=== PATIENT | male | born 1980 | race African-American/Black ===

== ENCOUNTER 2016-10-13 15:56 | Emergency (ER) | payer SELFPAY ==
[~2016-10-13] VITALS: Ht 177.8 cm; Wt 111.1 kg
[2016-10-13] MEDS: IV NORMAL SALINE 1000ML BAG 1,000 ML IV SCH ×2 (17:38→17:46)
[2016-10-13 17:53] LABS: BASO # 0.1 x10^3/uL (0.0-0.2); BASO % 1 % (0-3); EOS % 1 % (0-3); HEMOGLOBIN 14.8 g/dL (13.0-17.5); LYMPH # 1.8 x10^3/uL (1.0-4.8); LYMPH % 15 % (24-48); MEAN CORPUSCULAR HEMOGLOBIN 32 pg (25-35); MEAN CORPUSCULAR HGB CONC 34 g/dL (31-37); MEAN CORPUSCULAR VOLUME 94 fL (79-100); MONO % 9 % (0-9); NEUT % 75 % (31-73); PLATELET COUNT 232 x10^3/uL (140-400); RED BLOOD COUNT 4.58 x10^6/uL (4.30-5.70); RED CELL DISTRIBUTION WIDTH 13.4 % (11.5-14.5); WHITE BLOOD COUNT 12.1 x10^3/uL (4.0-11.0)
[2016-10-13] MEDS ORDERED: HYDROCODONE/APAP 5/325MG TABLET. PO ONE (18:00)
[2016-10-13 18:05] LABS: CALCIUM 9.2 mg/dL (8.5-10.1); CREATININE 1.3 mg/dL (0.7-1.3); GFR 76.9; POTASSIUM 4.5 mmol/L (3.5-5.1)
[2016-10-13 18:10] LABS: BILIRUBIN,URINE NEGATIVE (NEG); GLUCOSE,URINE NEGATIVE (NEG); NITRITE,URINE NEGATIVE (NEG); PROTEIN,URINE NEGATIVE (NEG-TRACE)
[2016-10-13 18:22] LABS: BACTERIA,URINE 0 /HPF (0-FEW); WBC,URINE >40 /HPF (0-4)
[2016-10-13] MEDS ORDERED: CONTRAST GIVEN MC PRN (19:15)
[2016-10-13 19:30] VITALS: BP 125/74
[2016-10-13] MEDS ORDERED: IOHEXOL 300 MG/ML 75 ML VIAL IV ONE (19:30)
--- NOTE | 2016-10-13 20:09 | RAD ---
Examination: CT of the abdomen pelvis with IV contrast. HISTORY History of lower abdominal pain, leukocytosis. COMPARISON None available. TECHNIQUE Axial CT images of the abdomen pelvis were performed with IV contrast. Coronal and sagittal reformats were performed. Exposure: One or more of the following dose reduction technique were utilized for this examination: 1. Automated exposure control. 2.Adjustment of MA and /or KV according to patient size. 3. Use of iterative reconstruction technique. Findings: The visualized bibasilar lungs demonstrate minimal atelectasis. No evidence of free air identified in the abdomen. The visualized liver, spleen, adrenal grossly appears unremarkable. The visualized gallbladder is mildly distended. The small bowel is nondilated. The appendix is normal. Feces and gas noted in the colon. Urinary bladder is mildly distended. There is minimal fat stranding identified about the urinary bladder and the seminal vesicle region could be secondary to streak artifact artifact or due to inflammation from cystitis or inflammation the seminal vesicles. The bilateral kidneys enhance symmetrically. No evidence of lytic bony destructive lesion. IMPRESSION 1. There is minimal fat stranding identified about the urinary bladder and the seminal vesicle region could be secondary to streak artifact artifact or due to inflammation from cystitis or inflammation the seminal vesicles. Correlate clinically. Otherwise unremarkable exam. Electronically signed by: Marshal Schaffer (Oct 13, 2016 20:07:40)
[2016-10-13] MEDS ORDERED: CIPR500T94 PO (20:35)
--- NOTE | 2016-10-13 20:36 | PHYS DOC ---
Past Medical History Past Medical History: No Pertinent History Past Surgical History: Other Additional Past Surgical Histo: R hand surgery Alcohol Use: None Drug Use: None Adult General Chief Complaint Chief Complaint: ABDOMINAL PAIN HPI HPI Patient is a 35 year old male who presents with lower abdominal pain and penile discharge. Patient reports for the past 2 days he has had sharp pain in his left lower quadrant and suprapubic area. This pain is worse with walking. He also reports he has a sharp pain by his heart. No shortness of breath. He says that he had a small amount of orange-colored discharge from his penis earlier today. No penile or testicular pain, no sores or other lesions. No prior similar episodes. He has not taken anything for symptoms. Review of Systems Review of Systems Constitutional: Denies fever or chills Respiratory: Denies cough or shortness of breath Cardiovascular: Sharp L side chest pain GI: Lower abdominal pain. Denies nausea, vomiting, bloody stools or diarrhea : Penile discharge. Denies dysuria or hematuria Musculoskeletal: Denies back pain or joint pain Integument: Denies rash or skin lesions Neurologic: Denies headache, focal weakness or sensory changes Current Medications Current Medications Current Medications Medications (Trade) Dose Ordered Sig/Helga Start Time Stop Time Status Last Admin Dose Admin Acetaminophen/ Hydrocodone Bitart (Lortab 5/325) 2 tab 1X ONCE 10/13/16 18:00 10/13/16 18:01 DC 10/13/16 18:13 2 TAB Azithromycin (Zithromax) 1,000 mg 1X ONCE 10/13/16 21:00 10/13/16 21:01 DC 10/13/16 21:00 1,000 MG Ceftriaxone Sodium (Rocephin Im) 250 mg 1X ONCE 10/13/16 21:00 10/13/16 21:01 DC 10/13/16 21:16 250 MG Info (Do NOT chart on this entry -- for MONITORING) 1 each PRN DAILY PRN 10/13/16 19:15 10/13/16 21:46 DC Iohexol (Omnipaque 300 Mg/ml) 75 ml 1X ONCE 10/13/16 19:30 10/13/16 19:31 DC 10/13/16 19:50 75 ML Sodium Chloride (Iv Sodium Chloride 0.9% 1000ml Bag) 1,000 ml @ 1,000 mls/hr Q1H 10/13/16 18:00 10/13/16 18:59 DC 10/13/16 17:46 1,000 MLS/HR Allergies Allergies Allergies Coded Allergies Type Severity Reaction Last Updated Verified No Known Drug Allergies 10/13/16 No Physical Exam Physical Exam Constitutional: Well developed, well nourished, no acute distress, non-toxic appearance Neck: Normal range of motion, no stridor Cardiovascular: Heart rate normal, regular rhythm, no murmur Lungs & Thorax: Bilateral breath sounds clear to auscultation Abdomen: Bowel sounds normal, soft, non-distended, mild suprapubic TTP without guarding or rebound : External genitalia visually unremarkable, no skin lesions noted, no testicular or penile TTP Skin: Warm, dry, no erythema, no rash Extremities: No obvious deformity, no edema Neurologic: Alert and oriented X 3, no gross deficits noted Current Patient Data Vital Signs Vital Signs Date Time Temp Pulse Resp B/P Pulse Ox O2 Delivery O2 Flow Rate FiO2 10/13/16 19:30 84 8 125/74 93 Room Air 10/13/16 16:02 98.3 98.3 Lab Values Laboratory Tests Test 10/13/16 16:40 10/13/16 17:38 Urine Collection Type Unknown Urine Color Yellow Urine Clarity Cloudy Urine pH 6.0 Urine Specific [place] 1.025 Urine Protein Negativemg/dL (NEG-TRACE) Urine Glucose (UA) Negativemg/dL (NEG) Urine Ketones (Stick) Negativemg/dL (NEG) Urine Blood Moderate (NEG) Urine Nitrite Negative (NEG) Urine Bilirubin Negative (NEG) Urine Urobilinogen Dipstick 1.0mg/dL (0.2 mg/dL) Urine Leukocyte Esterase Large (NEG) Urine RBC 1-2/HPF (0-2) Urine WBC >40/HPF (0-4) Urine Squamous Epithelial Cells None/LPF Urine Bacteria 0/HPF (0-FEW) Urine Mucus Slight/LPF White Blood Count 12.1x10^3/uL (4.0-11.0) H Red Blood Count 4.58x10^6/uL (4.30-5.70) Hemoglobin 14.8g/dL (13.0-17.5) Hematocrit 43.0% (39.0-53.0) Mean Corpuscular Volume 94fL (79-100) Mean Corpuscular Hemoglobin 32pg (25-35) Mean Corpuscular Hemoglobin Concent 34g/dL (31-37) Red Cell Distribution Width 13.4% (11.5-14.5) Platelet Count 232x10^3/uL (140-400) Neutrophils (%) (Auto) 75% (31-73) H Lymphocytes (%) (Auto) 15% (24-48) L Monocytes (%) (Auto) 9% (0-9) Eosinophils (%) (Auto) 1% (0-3) Basophils (%) (Auto) 1% (0-3) Neutrophils # (Auto) 9.1x10^3uL (1.8-7.7) H Lymphocytes # (Auto) 1.8x10^3/uL (1.0-4.8) Monocytes # (Auto) 1.1x10^3/uL (0.0-1.1) Eosinophils # (Auto) 0.1x10^3/uL (0.0-0.7) Basophils # (Auto) 0.1x10^3/uL (0.0-0.2) Sodium Level 138mmol/L (136-145) Potassium Level 4.5mmol/L (3.5-5.1) Chloride Level 102mmol/L (98-107) Carbon Dioxide Level 29mmol/L (21-32) Anion Gap 7 (6-14) Blood Urea Nitrogen 15mg/dL (8-26) Creatinine 1.3mg/dL (0.7-1.3) Estimated GFR (Cockcroft-Gault) 76.9 Glucose Level 93mg/dL (70-99) Calcium Level 9.2mg/dL (8.5-10.1) Laboratory Tests 10/13/16 17:38 Laboratory Tests 10/13/16 17:38 EKG EKG EKG (my read): sinus rhythm, rate 85, normal axis, intervals wnl, no acute ischemic changes Radiology/Procedures Radiology/Procedures CT A/P: IMPRESSION 1. There is minimal fat stranding identified about the urinary bladder and the seminal vesicle region could be secondary to streak artifact artifact or due to inflammation from cystitis or inflammation the seminal vesicles. Correlate clinically. Otherwise unremarkable exam. CXR (my read): No acute abnormality Course & Med Decision Making Course & Med Decision Making Pertinent Labs and Imaging studies reviewed. (See chart for details) Patient is 35 year old male who presents with lower abdominal pain and penile discharge. Also c/o chest pain; believe this to most likely be costochondritis, will screen for more serious pathology with EKG and CXR. Labs, UA ordered to evaluate abdominal pain. Oral pain meds ordered for patient comfort. Labs notable for mild leukocytosis. UA with leuk esterase and WBCs, however no bacteria. CT A/P ordered. Imaging results as above. Discussed results with patient, who is feeling better at this time. Will treat patient with abx to cover both UTI and possible STD. Discharged with instructions for follow up and return precautions. Dragon Disclaimer Dragon Disclaimer This electronic medical record was generated, in whole or in part, using a voice recognition dictation system. Departure Departure Impression: Primary Impression: Cystitis Disposition: HOME, SELF-CARE Condition: STABLE Referrals: NO PCP (PCP) Patient Instructions: Sexually Transmitted Disease, Urinary Tract Infection Additional Instructions: Thank you for allowing us to provide care today in the Emergency Department. It appears that you have either a urinary tract infection or possibly an STD. You have been treated with antibiotics for both. Take the provided medication as directed. Be sure to take the full course of antibiotics. Schedule a follow up appointment with a primary care doctor using the provided list. Return promptly to the Emergency Department if you develop any new or concerning symptoms. Scripts Ciprofloxacin Hcl (Cipro)500 Mg Tablet1 Tab PO BID #14 TAB Prov:JUNITO EDWARD MD 10/13/16 JUNITO EDWARD MD Oct 13, 2016 20:35
[2016-10-13] MEDS ORDERED: CEFTRIAXONE IM 250 MG VIAL. IM ONE (21:00)
[2016-10-13] MEDS ORDERED: AZITHROMYCIN 250 MG TABLET. PO ONE (21:00)
--- NOTE | 2016-10-14 00:21 | EKG ---
[facility] [address] [place] [address] Test Date: 2016-10-13 Test Time: 17:45:17 Pat Name: DAV NEVAREZ Department: Room: Gender: [facility] Director: : 1980 Requested By: JUNITO EDWARD Order Number: [id number] Reading MD: Eliecer Carr Measurements Intervals [place] Rate: 85 P: 24 W[place]: 184 QRS: 39 QRSD: 90 T: 12 QT: 346 QTc: 417 Interpretive Statements SINUS RHYTHM Electronically Signed On 10-15-2016 15:36:35 CDT by Eliecer Carr
--- NOTE | 2016-10-14 09:01 | RAD ---
Exam: PA and lateral chest radiograph History: Left-sided chest pain for one day. Comparison: None. Findings: Cardiomediastinal silhouette is within normal limits for size. Bilateral lung wolfe are free of focal infiltrate. No pleural effusion is seen. Impression: No acute cardiopulmonary process.
--- NOTE | 2016-10-16 15:59 | VNOTE ---
CALL BACK NOTE CALL BACK Microbiology 10/13/16 Urine Culture - Final, Complete 10/13/16 Urine Culture Result 1 (TRISH) - Final, Complete Patient was positive for gonorrhea and chlamydia and treated. I called the patient, he hanged up the phone while talking to him. Information will be given to the nursing educator to contact patient. SOSA GOMEZ APRN Oct 16, 2016 15:59
== END 2016-10-13 21:46 | disposition home or self-care (01) ==
LOC: ER 15:56
DX: N30.90 Cystitis, unspecified without hematuria (principal)
CPT/HCPCS: 36415; 71020; 74177; 80048; 81001; 85027; 87086; 87491; 87591; 93005; 96360; 96372; 99285; J0696; J7030; Q0144; Q9967

== ENCOUNTER 2017-12-28 10:35 | Inpatient (IN) | payer SELFPAY ==
[2017-12-28] MEDS: IV NORMAL SALINE 1000ML BAG 1,000 ML IV ×3 (11:38→17:01)
[2017-12-28 11:41] LABS: ADD MAN DIFF? NO
[2017-12-28 11:56] LABS: ANION GAP 10 (6-14); BASO % 0 % (0-3); BLOOD UREA NITROGEN 22 mg/dL (8-26); BUN/CREATININE RATIO 12 (6-20); CALCIUM 9.1 mg/dL (8.5-10.1); CARBON DIOXIDE 25 mmol/L (21-32); CHLORIDE 107 mmol/L (98-107); CREATININE 1.8 mg/dL (0.7-1.3); EOS % 1 % (0-3); GFR 52.2; GLUCOSE 199 mg/dL (70-99); HEMATOCRIT 47.8 % (39.0-53.0); HEMOGLOBIN 16.3 g/dL (13.0-17.5); LYMPH # 1.6 x10^3/uL (1.0-4.8); LYMPH % 17 % (24-48); MEAN CORPUSCULAR HEMOGLOBIN 33 pg (25-35); MEAN CORPUSCULAR HGB CONC 34 g/dL (31-37); MEAN CORPUSCULAR VOLUME 97 fL (79-100); MONO # 0.7 x10^3/uL (0.0-1.1); MONO % 7 % (0-9); NEUT # 7.1 x10^3uL (1.8-7.7); NEUT % 75 % (31-73); PLATELET COUNT 259 x10^3/uL (140-400); POTASSIUM 3.5 mmol/L (3.5-5.1); RED BLOOD COUNT 4.95 x10^6/uL (4.30-5.70); RED CELL DISTRIBUTION WIDTH 13.8 % (11.5-14.5); SODIUM 142 mmol/L (136-145); WHITE BLOOD COUNT 9.6 x10^3/uL (4.0-11.0)
[2017-12-28 12:01] LABS: CREATINE KINASE 399 U/L (39-308); LACTIC ACID 2.3 mmol/L (0.4-2.0)
[2017-12-28 12:02] LABS: ALBUMIN 4.1 g/dL (3.4-5.0); ALBUMIN/GLOBULIN RATIO 0.9 (1.0-1.7); ALK PHOS 62 U/L (46-116); ALT (SGPT) 30 U/L (16-63); AST (SGOT) 20 U/L (15-37); TOTAL BILIRUBIN 0.6 mg/dL (0.2-1.0); TOTAL PROTEIN 8.8 g/dL (6.4-8.2)
[2017-12-28 12:07] LABS: TROPONINI < 0.017 ng/mL (0.000-0.055)
[2017-12-28] MEDS: VANCOMYCIN 1GM IVPB FOR OMNI 250 ML IV (12:19)
[2017-12-28] MEDS: PIPERACILLIN/TAZOBACTAM 3.375 GM in IV NORMAL SALINE 50ML 50 ML IV (12:58)
[2017-12-28] MEDS ORDERED: traMADol 50 MG TABLET PO (16:45)
[2017-12-28] MEDS ORDERED: DOCUSATE SODIUM 100 MG CAPSULE. PO (16:45)
[2017-12-28] MEDS ORDERED: ACETAMINOPHEN 325 MG TABLET. PO (16:45)
[2017-12-28] MEDS ORDERED: hydrALAZINE 20 MG/ML VIAL. IVP (16:45)
[2017-12-28] MEDS ORDERED: NICOTINE 14MG PATCH. TD (16:45)
[2017-12-28] MEDS ORDERED: MORPHINE SULFATE 2 MG/ML DISP.SYRIN. IV (16:45)
[2017-12-28] MEDS ORDERED: ONDANSETRON PF 4 MG/2 ML VIAL. IV (16:45)
[2017-12-28 16:46] LABS: BILIRUBIN,URINE SMALL (NEG); CLARITY,URINE CLEAR; COLOR,URINE AMBER; GLUCOSE,URINE NEGATIVE (NEG); NITRITE,URINE NEGATIVE (NEG); PH,URINE 5.5; PROTEIN,URINE 30 mg/dL (NEG-TRACE)
[2017-12-28 16:58] LABS: AMPHETAMINE/METHAMPHETAMINE NEG (NEG); BARBITURATES NEG (NEG); BENZODIAZEPINES NEG (NEG); CANNABINOIDS NEG (NEG); COCAINE NEG (NEG); ETHANOL, URINE NEG (NEG); METHADONE NEG (NEG); OPIATES NEG (NEG); PHENCYCLIDINE POS (NEG)
[2017-12-28] MEDS: ENOXAPARIN 40 MG/0.4 ML SYRINGE. SQ ×2 (17:00→17:01)
[2017-12-28 17:15] LABS: AMORPHOUS SEDIMENT,UR PRESENT /HPF; BACTERIA,URINE FEW /HPF (0-FEW); HYALINE CASTS, URINE MODERATE /HPF; RBC,URINE 0 /HPF (0-2)
[2017-12-28 20:38] LABS: POC GLUCOSE 83 mg/dL (70-99)
[2017-12-29] MEDS: IV NORMAL SALINE 1000ML BAG 1,000 ML IV ×3 (03:28→17:54)
[2017-12-29 06:45] LABS: ADD MAN DIFF? NO
[2017-12-29 06:49] LABS: BASO % 1 % (0-3); EOS # 0.2 x10^3/uL (0.0-0.7); EOS % 3 % (0-3); HEMOGLOBIN 14.2 g/dL (13.0-17.5); LYMPH # 2.2 x10^3/uL (1.0-4.8); LYMPH % 35 % (24-48); MEAN CORPUSCULAR HEMOGLOBIN 33 pg (25-35); MEAN CORPUSCULAR HGB CONC 34 g/dL (31-37); MEAN CORPUSCULAR VOLUME 97 fL (79-100); MONO # 0.5 x10^3/uL (0.0-1.1); MONO % 9 % (0-9); NEUT # 3.3 x10^3uL (1.8-7.7); NEUT % 53 % (31-73); PLATELET COUNT 201 x10^3/uL (140-400); RED BLOOD COUNT 4.34 x10^6/uL (4.30-5.70); RED CELL DISTRIBUTION WIDTH 13.9 % (11.5-14.5); WHITE BLOOD COUNT 6.3 x10^3/uL (4.0-11.0)
[2017-12-29 06:59] LABS: ANION GAP 6 (6-14); BLOOD UREA NITROGEN 13 mg/dL (8-26); CALCIUM 8.2 mg/dL (8.5-10.1); CARBON DIOXIDE 27 mmol/L (21-32); CHLORIDE 111 mmol/L (98-107); CREATININE 1.3 mg/dL (0.7-1.3); GLUCOSE 118 mg/dL (70-99); POTASSIUM 3.9 mmol/L (3.5-5.1); SODIUM 144 mmol/L (136-145)
[2017-12-29 07:08] LABS: LACTIC ACID 1.1 mmol/L (0.4-2.0)
[2017-12-29] MEDS: ENOXAPARIN 40 MG/0.4 ML SYRINGE. SQ (17:51)
[2017-12-30] MEDS: IV NORMAL SALINE 1000ML BAG 1,000 ML IV (08:45)
== END 2017-12-30 15:00 | disposition home or self-care (01) | DRG 896 ==
LOC: ER 10:35 → 5 SOUTH 15:41
DX: F16.129 Hallucinogen abuse with intoxication, unspecified (principal); G92 Toxic encephalopathy; E87.2 Acidosis; R65.10 Systemic inflammatory response syndrome (SIRS) of non-infectious origin without acute organ dysfunction; F17.210 Nicotine dependence, cigarettes, uncomplicated; E86.0 Dehydration; Z82.49 Family history of ischemic heart disease and other diseases of the circulatory system
CPT/HCPCS: 36415; 70450; 71045; 80048; 80053; 80307; 81001; 82550; 82962; 83605; 84484; 85025; 93005; 96361; 96365; 99285; 99285-25; J1650; J2543; J3370; J7030

== ENCOUNTER 2018-01-21 07:44 | Emergency (ER) | payer SELFPAY ==
[2018-01-21] MEDS: TETRACAINE 0.5% OPHTH SOLUTION 4ML BOTTLE. OS (08:08)
[2018-01-21] MEDS: FLUORESCEIN OPHTH TEST STRIP. OS (08:08)
== END 2018-01-21 08:30 | disposition home or self-care (01) ==
LOC: ER 07:44
DX: H10.89 Other conjunctivitis (principal)
CPT/HCPCS: 99283

== ENCOUNTER 2018-02-22 14:44 | Emergency (ER) | payer SELFPAY ==
[~2018-02-22] VITALS: Ht 177.8 cm; Wt 99.8 kg
[~2018-02-22 14:44] MED LIST: CIPR500T94 PO; ERYT1OIN6 OP
[2018-02-22 14:59] VITALS: BP 148/85
--- NOTE | 2018-02-22 15:14 | PHYS DOC ---
Past Medical History Past Medical History: No Pertinent History Past Surgical History: Other Additional Past Surgical Histo: R hand surgery Alcohol Use: None Drug Use: None Adult General Chief Complaint Chief Complaint: LACERATION/AVULSION HPI HPI Patient is a 37 year old medical presents with right index finger laceration, patient accidentally cut himself with a can. Patient is right-handed. Review of Systems Review of Systems Constitutional: Denies fever or chills [] Musculoskeletal: Denies back pain or joint pain [] Integument: right index finger laceration Neurologic: Denies headache, focal weakness or sensory changes [] All other systems were reviewed and found to be within normal limits, except as documented in this note. Current Medications Current Medications Current Medications Medications (Trade) Dose Ordered Sig/Helga Start Time Stop Time Status Last Admin Dose Admin Acetaminophen (Tylenol) 500 mg 1X ONCE 02/22/18 16:00 02/22/18 16:01 DC Diphtheria/ Tetanus/Acell Pertussis (Boostrix) 0.5 ml ONCE ONCE 02/22/18 15:15 02/22/18 15:16 DC 02/22/18 15:23 0.5 ML Lidocaine/Sodium Bicarbonate (Buffered Lidocaine 1%) 3 ml 1X ONCE 02/22/18 15:15 02/22/18 15:16 DC 02/22/18 15:15 3 ML Allergies Allergies Allergies Coded Allergies Type Severity Reaction Last Updated Verified No Known Drug Allergies 10/13/16 No Physical Exam Physical Exam Constitutional: Well developed, well nourished, no acute distress, non-toxic appearance. [] Skin: Warm, dry, right lateral index finger distal end with a laceration approximately 3 cm long, there is no obvious tendon involvement. Patient able to flex and extend the finger at the MIP PIP and DIP joints. Adequate radius sensation to the right index finger. +2 right radial pulse. Cap refill less than 2 seconds the right index finger. Back: No tenderness, no CVA tenderness. [] Extremities: No tenderness, no cyanosis, no clubbing, ROM intact, no edema. [] Neurologic: Alert and oriented X 3, normal motor function, normal sensory function, no focal deficits noted. [] Psychologic: Affect normal, judgement normal, mood normal. [] Current Patient Data Vital Signs Vital Signs Date Time Temp Pulse Resp B/P (MAP) Pulse Ox O2 Delivery O2 Flow Rate FiO2 9/2/18 14:59 98.3 72 18 148/85 (106) 98 Room Air 98.3 EKG EKG [] Radiology/Procedures Radiology/Procedures Laceration/Wound Repair Wound Location: right index finger Wound's Depth, Shape: vertical Wound Length (cm): approx. 3 Wound Explored: clean Irrigated w/ Saline (ccs): 30 Betadine Prep?: Y Anesthesia: buffered lidocaine 1% Volume Anesthetic (ccs): approx. 2 cc Wound Repaired With: Ethilon Suture Size/Type: 5.0/Interrupted sutures Number of Sutures: 7 Progress :wound covered with dressing. Course & Med Decision Making Course & Med Decision Making Pertinent Labs and Imaging studies reviewed. (See chart for details) Patient has right index finger laceration, the laceration was closed by me as noted in procedures. Tetanus updated. Wound care and return precautions provided. Dragon Disclaimer Dragon Disclaimer This electronic medical record was generated, in whole or in part, using a voice recognition dictation system. Departure Departure Impression: Primary Impression: Laceration of index finger Disposition: HOME, SELF-CARE Condition: STABLE Referrals: NO PCP (PCP) Follow-up with your own doctor or the emergency room in 7-10 days for suture removal Patient Instructions: Fingertip Laceration Additional Instructions: You have right index finger laceration that was closed with stitches. You can shower and wash your hands as needed. Apply Neosporin to the laceration site twice a day. Monitor the area for signs of infection including but not limited to increased redness to the area, warmth to the area, yellow drainage from the area and return to the ED if they occur. Follow-up with the ED or your own doctor in 7-10 days for suture removal. Problem Qualifiers Primary Impression: Laceration of index finger Encounter type: initial encounter Damage to nail status: without damage Foreign body presence: without foreign body Laterality: right Qualified Codes: S61.210A - Laceration without foreign body of right index finger without damage to nail, initial encounter SOSA GOMEZ APRN Feb 22, 2018 15:14
[2018-02-22] MEDS ORDERED: LIDOCAINE WITH 8.4% SOD BICARB 3 ML DISP.SYRIN. INJ ONE (15:15)
[2018-02-22] MEDS ORDERED: DIPHTH,PERTUSS(ACELL),TET TOX 0.5 ML DISP.SYRIN. VAX IM ONE (15:15)
[2018-02-22] MEDS ORDERED: ACETAMINOPHEN 500 MG TABLET PO ONE (16:00)
== END 2018-02-22 16:12 | disposition home or self-care (01) ==
LOC: ER 14:44
DX: S61.210A Laceration without foreign body of right index finger without damage to nail, initial encounter (principal); W26.8XXA Contact with other sharp object(s), not elsewhere classified, initial encounter; Y93.89 Activity, other specified; Y92.89 Other specified places as the place of occurrence of the external cause; Y99.8 Other external cause status
CPT/HCPCS: 12002; 90471; 90715; 99283